=== PATIENT | male | born 1985 | race Caucasian/White ===

== ENCOUNTER 2025-02-24 13:23 | Emergency (ER) | payer SELFPAY ==
[2025-02-24 15:11] LABS: BASOPHILS ABSOLUTE AUTO 0.03 K/uL (0.00-0.10); BASOPHILS PERCENT AUTO 0.3 % (0.1-1.3); EOSINOPHILS ABSOLUTE AUTO 0.09 K/uL (0.00-0.40); HEMATOCRIT 37.9 % (38.4-49.7); HEMOGLOBIN 12.8 g/dL (12.9-16.9); IMMATURE GRAN ABSOLUTE AUTO 0.03 K/uL (0.00-0.23); IMMATURE GRAN PERCENT AUTO 0.3 % (0.0-0.7); LYMPHOCYTES ABSOLUTE AUTO 2.19 K/uL (0.8-3.3); LYMPHOCYTES PERCENT AUTO 25.1 % (11.4-47.7); MEAN CORPUSCULAR HEMOGLOBIN 31.4 pg (31.6-35.5); MEAN CORPUSCULAR HGB CONC 33.8 g/dL (31.6-35.5); MEAN CORPUSCULAR VOLUME 92.9 fL (81.4-99.0); MONOCYTES ABSOLUTE AUTO 0.43 K/uL (0.20-0.90); MONOCYTES PERCENT AUTO 4.9 % (3.3-12.6); NEUTROPHILS ABSOLUTE AUTO 5.94 K/uL (1.0-7.6); NEUTROPHILS PERCENT AUTO 68.4 % (40.0-78.1); PLATELET COUNT,PLT 204 K/uL (130-375); RED BLOOD CELL COUNT 4.08 M/uL (4.14-5.76); WHITE BLOOD CELL COUNT,WBC 8.7 K/uL (3.2-11.0)
[2025-02-24] MEDS: Sodium Chloride 0.9% 80 ML IV SCH (15:31)
[2025-02-24] MEDS: Iopamidol 612 MG/ML 100 ML Bottle IV SCH (15:31)
[2025-02-24] MEDS: Sodium Chloride 0.9% 10 ML Syringe FLUSH PRN (15:31)
[2025-02-24 15:39] LABS: A/G RATIO 1.2 (1.2-2.2); ALANINE AMINOTRANSFERASE,ALT 80 U/L (12-78); ALBUMIN 3.8 g/dL (3.4-5.0); ALKALINE PHOSPHATASE 141 U/L (46-116); AMYLASE 54 U/L (25-115); ANION GAP 10.5 mmol/L (5.0-14.0); ASPARTATE AMNIOTRANSFERASE,AST 82 U/L (15-37); BILIRUBIN TOTAL 0.7 mg/dL (0.2-1.0); BLOOD UREA NITROGEN,BUN 4 mg/dL (7-18); CALCIUM 9.3 mg/dL (8.5-10.1); CARBON DIOXIDE,CO2 28 mmol/L (21-32); CHLORIDE,CL 104 mmol/L (100-108); CREATININE 0.6 mg/dL (0.8-1.3); EST CRCL DRUG DOSING (CG) 183.22 mL/min; ESTIMATED GFR 127 mL/min (>60); GLUCOSE RANDOM 106 mg/dL (74-106); POTASSIUM,K 3.7 mmol/L (3.6-5.2); PROTEIN TOTAL,TP 6.9 g/dL (6.4-8.2); SODIUM,NA 142 mmol/L (140-148)
[2025-02-24 15:47] LABS: LACTIC ACID 0.9 mmol/L (0.4-2.0)
[2025-02-24 15:49] LABS: C-REACTIVE PROTEIN < 0.50 mg/dL (<0.50)
[2025-02-24] MEDS: Sodium Chloride 0.9% 10 ML Syringe FLUSH ONE (15:51)
[2025-02-24] MEDS: Ampicillin/Sulbactam Na 3 GM in Sodium Chloride 0.9% 100 ML IV ONE (16:41)
== END 2025-02-24 18:02 | disposition home or self-care (01) ==
LOC: JP.ED 13:23
DX: K81.0 Acute cholecystitis (principal)
CPT/HCPCS: 36415; 74177; 80053; 82150; 83605; 83690; 85025; 86140; 96365; 99284; 99285; J0295; Q9967

== ENCOUNTER 2025-02-25 07:10 | Day surgery (SDC) | payer SELFPAY ==
[2025-02-25] MEDS ORDERED: fentaNYL 250 MCG/5 ML SDV ONE (07:17)
[2025-02-25] MEDS ORDERED: Ondansetron 4 MG/2 ML SDV ONE (07:18)
[2025-02-25] MEDS ORDERED: Dexamethasone 4 MG/ML SDV ONE (07:18)
[2025-02-25] MEDS ORDERED: Propofol 200 MG/20 ML SDV ONE (07:18)
[2025-02-25] MEDS: Indocyanine Green 25 MG SDV IV ONE (08:00)
[2025-02-25] MEDS: Lactated Ringers 1,000 ML IV SCH (08:00)
[2025-02-25 08:12] LABS: A/G RATIO 1.3 (1.2-2.2); ALANINE AMINOTRANSFERASE,ALT 62 U/L (12-78); ASPARTATE AMNIOTRANSFERASE,AST 36 U/L (15-37); BILIRUBIN TOTAL 0.6 mg/dL (0.2-1.0); BLOOD UREA NITROGEN,BUN 4 mg/dL (7-18); CARBON DIOXIDE,CO2 25 mmol/L (21-32); CHLORIDE,CL 107 mmol/L (100-108); CREATININE 0.6 mg/dL (0.8-1.3); EST CRCL DRUG DOSING (CG) 183.22 mL/min; ESTIMATED GFR 127 mL/min (>60); GLUCOSE RANDOM 98 mg/dL (74-106); POTASSIUM,K 3.8 mmol/L (3.6-5.2); PROTEIN TOTAL,TP 6.8 g/dL (6.4-8.2); SODIUM,NA 143 mmol/L (140-148)
[2025-02-25] MEDS: Bupivacaine 0.25%/EPINEPHrine 1:200,000 30 ML SDV ONE (08:40)
[2025-02-25] MEDS ORDERED: hydrALAZINE 20 MG/ML SDV ONE (08:41)
[2025-02-25] MEDS ORDERED: fentaNYL 100 MCG/2 ML SDV ONE ×3 (09:05→09:43)
[2025-02-25] MEDS ORDERED: Ketorolac 30 MG/ML SDV ONE (09:38)
[2025-02-25] MEDS: Ondansetron 4 MG/2 ML SDV IVPUSH ONE (12:34)
[2025-02-26] MEDS ORDERED: Lactated Ringers 1,000 ML IV SCH (07:30)
== END 2025-02-25 14:46 | disposition home or self-care (01) ==
LOC: JP.SDS 07:10
PROVIDERS: ATTEND Surgery
DX: K80.12 Calculus of gallbladder with acute and chronic cholecystitis without obstruction (principal); E66.9 Obesity, unspecified
CPT/HCPCS: 00790; 36415; 47562; 80053; 88304; A9270; J0360; J0690; J1100; J1885; J1920; J2405; J2704; J3010; J7120; J3490